=== PATIENT | female | born 1935 | race Caucasian/White ===

== ENCOUNTER 2017-05-04 10:20 | Outpatient (CLI) | payer MEDICARE, OTHER ==
--- NOTE | 2017-05-04 14:30 | MMO ---
MAMMOGRAM DIGITAL SCREENING BILATERAL: DATE: 05/04/17 HISTORY: 81-year-old female for routine bilateral screening mammogram. COMPARISON: 02/19/14 and 03/25/16. TECHNIQUE: Digital mammographic views. Computer-aided detection (CAD) utilized. FINDINGS: Breast density: Heterogeneously dense, which could obscure a small mass. There is a new, well circumscribed, oval, approximately 1.5 x 0.5 x 0.5 cm mass superficially located in the right posterior upper outer quadrant, approximately 13 cm from the nipple. The left breast is unchanged. IMPRESSION: 1. BIRADS category 0 - Incomplete. Need additional imaging evaluation. 2. Recommend additional mammographic views of the right breast. Right breast ultrasound should also be performed, if needed, on the same date. 3. This facility will arrange for the additional imaging. CARMINA Pacheco POS: [facility]
== END 2017-05-04 10:21 | disposition home or self-care (01) ==
LOC: SCSMAMMO 10:20
PROVIDERS: ATTEND Obstetrics & Gynecology
DX: Z12.31 Encounter for screening mammogram for malignant neoplasm of breast (principal)
CPT/HCPCS: 77067

== ENCOUNTER 2017-05-10 13:12 | Outpatient (CLI) | payer MEDICARE, OTHER | END 2017-05-10 13:13 | disposition home or self-care (01) | LOC: BICMAMMO 13:12 | PROVIDERS: ATTEND Obstetrics & Gynecology | DX: R92.2 Inconclusive mammogram (principal) | CPT/HCPCS: G0206; G0279 ==

== ENCOUNTER 2018-06-27 10:43 | Outpatient (CLI) | payer MEDICARE, OTHER ==
--- NOTE | 2018-06-27 13:11 | BD ---
DEXA BONE DENSITY STUDY: INDICATIONS: Postmenopausal bone mineral screening evaluation. LUMBAR SPINE BMD (g/cm2) T-SCORE L1 0.862 -1.2 L2 1.020 0.0 L3 1.0 -0.2 L4 0.9 -1.3 TOTAL 0.9 -0.7 NECK 0.7 -1.2 TOTAL 0.8 -0.5 IMPRESSION: T-score indicates osteopenia with a major 10 year osteoporotic fracture risk of 13%. POS: [facility]
== END 2018-06-27 10:44 | disposition home or self-care (01) ==
LOC: BICMAMMO 10:43
PROVIDERS: ATTEND Obstetrics & Gynecology
DX: Z13.820 Encounter for screening for osteoporosis (principal); M85.89 Other specified disorders of bone density and structure, multiple sites
CPT/HCPCS: 77080

== ENCOUNTER 2022-06-01 11:35 | Outpatient (CLI) | payer MEDICARE, OTHER | END 2022-06-01 11:36 | disposition home or self-care (01) | LOC: SCSRAD 11:35 | PROVIDERS: ATTEND Family Medicine | DX: M25.552 Pain in left hip (principal) ==